=== PATIENT | female | born 1975 | race Caucasian/White ===

== ENCOUNTER 2017-06-25 05:35 | Day surgery (SDC) | payer BC ==
[~2017-06-25] VITALS: Ht 170.2 cm; Wt 97.5 kg
[2017-06-25] MEDS ORDERED: CEFAZOLIN 1 GM IVPB PREMIX 50 ML IV ONE ×2 (05:58→07:00)
[2017-06-25] MEDS ORDERED: SUCCINYLCHOLINE CHLORIDE 20 MG/ML(QUELICIN) IVP ONE (07:56)
[2017-06-25] MEDS ORDERED: ROCURONIUM BROMIDE 10 MG/ML (ZEMURON) IV ONE (07:56)
[2017-06-25] MEDS ORDERED: GLYCOPYRROLATE 0.2 MG/ML VIAL IJ ONE (07:56)
[2017-06-25] MEDS ORDERED: NS 1000 ML BAG IV ONE (07:56)
[2017-06-25] MEDS ORDERED: fentaNYL CITRATE 250 MCG/5 ML AMP IV ONE (07:56)
[2017-06-25] MEDS ORDERED: LR 1,000 ML IV.SOLN IV ONE (07:56)
[2017-06-25] MEDS ORDERED: PROPOFOL 200MG/ 20ML VIAL (DIPRIVAN) IV ONE (07:56)
[2017-06-25] MEDS ORDERED: KETOROLAC TROMETHAMINE 30 MG VIAL IVP ONE ×2 (07:56→14:00)
[2017-06-25] MEDS ORDERED: NS IRRIG SOLN 1000 ML IR ONE (07:56)
[2017-06-25] MEDS ORDERED: MIDAZOLAM HCL 5 MG/5 ML VIAL IVP ONE (07:56)
[2017-06-25] MEDS ORDERED: METOCLOPRAMIDE HCL 10 MG/2 ML VIAL IVP ONE (07:56)
[2017-06-25] MEDS ORDERED: SEVOFLURANE 15 MIN GAS INH ONE (07:56)
[2017-06-25] MEDS ORDERED: DEXAMETHASONE SOD PHOSPHATE 4 MG/ML VIAL IVP ONE (07:56)
[2017-06-25] MEDS ORDERED: MORPHINE SULFATE 10 MG/ML VIAL IVP ONE (07:56)
[2017-06-25] MEDS ORDERED: LR 1,000 ML IV ONE (08:47)
[2017-06-25] MEDS ORDERED: fentaNYL CITRATE/PF 100 MCG/2 ML AMP IVP PRN (09:00)
[2017-06-25] MEDS ORDERED: ONDANSETRON HCL 4 MG/2 ML VIAL IVP PRN ×3 (09:00→14:30)
[2017-06-25] MEDS ORDERED: NALOXONE HCL 0.4 MG/ML AMP (NARCAN) IVP PRN (09:00)
[2017-06-25] MEDS ORDERED: ePHEDrine sulfate 50 MG/ML VIAL IVP PRN (09:00)
[2017-06-25] MEDS ORDERED: NALBUPHINE HCL 10 MG/ML AMP IVP PRN (09:00)
[2017-06-25] MEDS ORDERED: DIPHENHYDRAMINE INJ 50 MG/ML VIAL IVP PRN (09:00)
[2017-06-25] MEDS ORDERED: HYDROcodone/ACETAMIN 5-325 MG TAB (NORCO/ VICODIN) PO PRN (11:00)
[2017-06-25] MEDS ORDERED: OXYCODONE/ACETAMINOPHEN 5-325 TABLET PO PRN ×2 (11:00)
[2017-06-25] MEDS ORDERED: fentaNYL CITRATE/PF 100 MCG/2 ML AMP ONE (11:42)
[2017-06-25] MEDS ORDERED: SIMETHICONE 80 MG TAB.CHEW PO SCH (13:00)
[2017-06-25 13:04] VITALS: BP_SYST 137
[2017-06-25] MEDS ORDERED: OXYCODONE/ACETAMINOPHEN 5-325 TABLET ONE (13:07)
== END 2017-06-25 15:00 | disposition home or self-care (01) ==
LOC: SMU 05:35 → SDS 05:35
PROVIDERS: ATTEND Specialist
DX: D25.9 Leiomyoma of uterus, unspecified (principal); Z68.35 Body mass index [BMI] 35.0-35.9, adult; E66.9 Obesity, unspecified; F41.9 Anxiety disorder, unspecified; E66.3 Overweight
CPT/HCPCS: 52000; 58573; 88307; C1727; J0330; J0690; J1100; J1885; J2250; J2270; J2704; J2765; J3010 ×2; J3490; J7030; J7120; E0190